=== PATIENT | female | born 1970 | race American Indian/Alaskan Native ===

== ENCOUNTER 2016-11-01 13:08 | Emergency (ER) | payer SELFPAY ==
[2016-11-01] MEDS ORDERED: TORADOL IV ONE (22:42)
[2016-11-01] MEDS ORDERED: CATAPRES PO ONE (22:42)
--- NOTE | 2016-11-01 22:47 | Emergency Department Report ---
ED Headache HPI - General Chief Complaint: Headache Stated Complaint: BAD HEADACHE/SOB Time Seen by Provider: 11/01/16 22:21 Source: patient Exam Limitations: no limitations - History of Present Illness Initial Comments: 46-year-old female with a past medical history of GERD, migraines, and anemia presents to the hospital complains of headache since 4:30 yesterday a.m. Pain is behind between the eyes midline and radiates to her forehead. It is sharp and throbbing, intermittent, and rated moderate to severe intensity. Vision took Motrin at home when headache started and it improved but then pain returned. Patient has a history of migraine headaches typically unilateral and associated with photophobia. This is different from her typical headache. She denies nausea, vomiting, neck stiffness or fever. Patient presents with elevated blood pressure denies a previous history. Patient has a history of seizures. Last seizure was 20 years ago. She is not currently on medications. Allergies/Adverse Reactions: Allergies codeine Allergy (Verified 10/06/14 02:18) Itching Home Medications: Ambulatory Orders HYDROcodone/APAP 5-325 [[place] 5/325] 1 each PO Q6HR PRN #14 tablet 11/02/16 Ibuprofen [Motrin] 800 mg PO Q8HR PRN #30 tablet 11/02/16 amLODIPine [Norvasc] 5 mg PO DAILY #30 tab 11/02/16 ED Review of Systems ROS: Stated complaint: BAD HEADACHE/SOB Other details as noted in HPI Comment: All other systems reviewed and negative Other: Constitutional: No fevers chills Eyes: No eye pain visual changes ENT: No ear pain or throat pain, denies nasal congestion Neck: Denies pain Respiratory: Denies cough wheezing. Shortness of breath reported when headache recurs Cardiovascular: Denies chest pain, palpitations, syncope GI: Denies abdominal pain, nausea, vomiting, diarrhea : Denies dysuria, urinary frequency, or urgency Musculoskeletal: Denies back pain, joint swelling Skin: Denies rash, lesions, erythema Neurologic: As per HPI Psychiatric: Denies suicidal ideation, hallucinations ED Past Medical Hx - Past Medical History Hx GERD: Yes Hx Headaches / Migraines: Yes Hx Seizures: Yes (no meds) Additional medical history: ANEMIA - Surgical History Additional Surgical History: , behind ear - Social History Smoking Status: Never Smoker Substance Use Type: None - Medications Home Medications: Home Medications Medication Instructions Recorded Confirmed Last Taken Type HYDROcodone/APAP 5-325 [[place] 1 each PO Q6HR PRN #14 tablet 11/02/16 Unknown Rx 5/325] Ibuprofen [Motrin] 800 mg PO Q8HR PRN #30 tablet 11/02/16 Unknown Rx amLODIPine [Norvasc] 5 mg PO DAILY #30 tab 11/02/16 Unknown Rx ED Physical Exam - General Limitations: No Limitations - Other Other exam information: General: No limitations, patient is alert in no acute distress Head exam: Atraumatic, normocephalic Eyes exam: Normal appearance, pupils equal reactive to light, extraocular movements intact ENT: Moist mucous membrane, no sinus tenderness Neck exam: Normal inspection, full range of motion, no meningismus nontender Respiratory exam: Clear to auscultation bilateral, no wheezes, rales, crackles Cardiovascular: Normal rate and rhythm, normal heart sounds Abdomen: Soft, nondistended, and nontender, with normal bowel sounds, no rebound, or guarding Extremity: Full range of motion normal inspection no deformity Back: Normal Inspection, full range of motion, no tenderness Neurologic: Alert, oriented x3, cranial nerves intact, no motor or sensory deficit Psychiatric: normal affect, normal mood Skin: Warm, dry, intact ED Course Vital Signs 11/01/16 11/01/16 11/01/16 13:18 22:22 22:29 Temperature 98.8 F 98.3 F Pulse Rate 84 66 Respiratory 17 Rate Blood Pressure 173/93 Blood Pressure 185/101 [Left] O2 Sat by Pulse 100 100 100 Oximetry 11/01/16 11/01/16 11/02/16 23:00 23:15 00:00 Temperature Pulse Rate 60 72 59 L Respiratory 14 14 Rate Blood Pressure 188/101 163/93 Blood Pressure [Left] O2 Sat by Pulse 100 100 Oximetry 11/02/16 11/02/16 11/02/16 00:32 01:00 01:15 Temperature Pulse Rate 58 L 50 L 54 L Respiratory 14 12 Rate Blood Pressure 159/89 136/80 Blood Pressure 127/77 [Left] O2 Sat by Pulse 100 98 Oximetry 11/02/16 11/02/16 11/02/16 01:20 02:00 02:30 Temperature Pulse Rate 55 L 157 H 55 L Respiratory 15 28 H 15 Rate Blood Pressure 127/77 140/90 142/83 Blood Pressure [Left] O2 Sat by Pulse 99 98 Oximetry 11/02/16 11/02/16 11/02/16 03:00 03:12 04:00 Temperature Pulse Rate 55 L 56 L 57 L Respiratory 16 11 L 12 Rate Blood Pressure 130/79 130/79 130/81 Blood Pressure [Left] O2 Sat by Pulse 99 100 Oximetry 11/02/16 05:00 Temperature Pulse Rate 56 L Respiratory 12 Rate Blood Pressure 131/82 Blood Pressure [Left] O2 Sat by Pulse 99 Oximetry - Reevaluation(s) Reevaluation #1: 11/01/16 22:46 Portal, clonidine, and CT head and labs ordered Reevaluation #2: 11/02/16 00:24 Patient states her pain came down from a 10 to a 8 after receiving Toradol. Additional morphine and Zofran order. Patient states she has tolerated morphine in the past. Reevaluation #3: 11/02/16 02:14 After receiving the morphine 6 mg patient's systolic pressure dropped to 80 patient became lightheaded and nauseated. 1 L of normal saline ordered stat. After 1 L normal saline bolus patient's repeat systolic pressure 126. Patient still complains of feeling lightheaded and therefore will be observed further Reevaluation #4: 11/02/16 05:24 Patient remains pain-free. Blood pressure remained stable for several hours after initial hypotensive episode. Patient complains of persistent nausea. Jorge Luis ordered at this time however, patient is stable for discharge ED Medical Decision Making - Lab Data Result diagrams: 11/01/16 23:22 11/01/16 23:22 Lab Results 11/01/16 11/01/16 Range/Units 23:22 23:22 WBC 9.1 (4.5-11.0) K/mm3 RBC 4.10 (3.65-5.03) M/mm3 Hgb 9.5 L (10.1-14.3) gm/dl Hct 30.3 (30.3-42.9) % MCV 74 L (79-97) fl MCH 23 L (28-32) pg MCHC 31 (30-34) % RDW 18.9 H (13.2-15.2) % Plt Count 332 (140-440) K/mm3 Sodium 139 (137-145) mmol/L Potassium 3.8 (3.6-5.0) mmol/L Chloride 102.6 (98-107) mmol/L Carbon Dioxide 24 (22-30) mmol/L Anion Gap 16 mmol/L BUN 11 (7-17) mg/dL Creatinine 0.8 (0.7-1.2) mg/dL Estimated GFR > 60 ml/min BUN/Creatinine Ratio 13.75 % Glucose 84 (65-100) mg/dL Calcium 8.9 (8.4-10.2) mg/dL - Radiology Data Radiology results: report reviewed (ct head: naf) - Medical Decision Making CT head unremarkable. Patient be discharged home with headache and a new onset hypertension. BP medication and pain medication will be prescribed. - Differential Diagnosis sinusitis, hypertensive headache, ICH, Hypertensive emergency/urgency Critical Care Time: No Critical care attestation.: If time is entered above; I have spent that time in minutes in the direct care of this critically ill patient, excluding procedure time. ED Disposition Clinical Impression: Headache Qualifiers: Headache type: unspecified Headache chronicity pattern: unspecified pattern Intractability: not intractable Qualified Code(s): R51 - Headache HTN (hypertension) Qualifiers: Hypertension type: essential hypertension Qualified Code(s): I10 - Essential ( primary) hypertension Disposition: DISCHARGED TO HOME OR SELFCARE Is pt being admited?: No Does the pt Need Aspirin: No Condition: Stable Instructions: Hypertension (ED), Acute Headache (ED) Additional Instructions: Take the medication as prescribed. Take your blood pressure medication daily and continue to monitor your pressure at home. Follow-up with your primary care doctor for further workup and evaluation. Please return if symptoms worsen. Prescriptions: HYDROcodone/APAP 5-325 [[place] 5/325] 1 each PO Q6HR PRN #14 tablet PRN Reason: Pain Ibuprofen [Motrin] 800 mg PO Q8HR PRN #30 tablet PRN Reason: Pain amLODIPine [Norvasc] 5 mg PO DAILY #30 tab Referrals: [facility] [Provider Group] - 3-5 Days DELBERT HALL MD [Staff Physician] - 3-5 Days Time of Disposition: 05:26
--- NOTE | 2016-11-01 23:12 | Cat Scan Report ---
FINAL REPORT EXAM: CT HEAD/BRAIN WO CON HISTORY: carpenter, htn TECHNIQUE: Noncontrast CT axial images of the brain. PRIORS: None. FINDINGS: No parenchymal mass, mass effect, hemorrhage, midline shift or hydrocephalus. No evidence of acute cortical infarct. No abnormal, extra-axial fluid or air collection. Osseous calvarium grossly intact. Probable small, mucous retention cyst versus polyp in the right anterior sphenoid sinus. IMPRESSION: 1. No acute intracranial findings.
[2016-11-01 23:57] LABS: Anion Gap 16 mmol/L; BUN/Creatinine Ratio 13.75; Blood Urea Nitrogen 11 mg/dL (7-17); Calcium 8.9 mg/dL (8.4-10.2); Carbon Dioxide 24 mmol/L (22-30); Chloride 102.6 mmol/L (98-107); Glucose 84 mg/dL (65-100); Potassium 3.8 mmol/L (3.6-5.0); Sodium 139 mmol/L (137-145)
[2016-11-02 00:03] LABS: Hematocrit 30.3 % (30.3-42.9); Hemoglobin 9.5 gm/dl (10.1-14.3); Mean Corpuscular HGB Conc 31 % (30-34); Mean Corpuscular Volume 74 fl (79-97); Platelet Count 332 K/mm3 (140-440); Red Cell Distribution Width 18.9 % (13.2-15.2); White Blood Count 9.1 K/mm3 (4.5-11.0)
[2016-11-02 00:04] LABS: Mean Corpuscular Hemoglobin 23 pg (28-32)
[2016-11-02] MEDS ORDERED: MORPHINE IV ONE (00:23)
[2016-11-02] MEDS ORDERED: ZOFRAN IV ONE ×2 (00:23→01:15)
[2016-11-02] MEDS ORDERED: NACL 0.9% 1000 ML 1,000 ML ONE (01:08)
[2016-11-02] MEDS ORDERED: NACL 0.9% 1000 ML 1,000 ML IV ONE (01:16)
[2016-11-02] MEDS ORDERED: PHENERGAN PO ONE (05:12)
[2016-11-02] MEDS ORDERED: REGLAN IV ONE (05:58)
[2016-11-02] MEDS ORDERED: BENADRYL IV ONE (05:58)
[2016-11-02 06:16] VITALS: BP 169/91
== END 2016-11-02 07:05 | disposition home or self-care (01) ==
LOC: ED 13:08
DX: R51 Headache (principal); I10 Essential (primary) hypertension; K21.9 Gastro-esophageal reflux disease without esophagitis; R56.9 Unspecified convulsions; Z88.6 Allergy status to analgesic agent
CPT/HCPCS: 36415; 70450; 80048; 85027; 93005; 93010; 96361; 96374; 96375; 96376; 99284; J1200; J1885; J2270; J2405; J2765; J7030; Q0169